=== PATIENT | female | born 1995 | race Caucasian/White ===

== ENCOUNTER 2016-11-29 21:42 | Emergency (ER) | payer OTHER ==
[~2016-11-29] VITALS: Ht 160 cm; Wt 58.1 kg
[2016-11-29 21:55] VITALS: Ht 160 cm; Wt 58.1 kg
[2016-11-29] MEDS ORDERED: SODIUM CHLORIDE 0.9% 1000ML 1,000 ML IV STA (22:04)
[2016-11-29] MEDS ORDERED: ONDANSETRON INJ 2 MG/ML 2 ML VIAL IV STA (22:04)
[2016-11-29] MEDS ORDERED: ACETAMINOPHEN 500 MG TAB PO STA (22:04)
[2016-11-29] MEDS ORDERED: KETOROLAC TROMETHAMINE 30 MG/ML VIAL IV STA (22:04)
[2016-11-29] MEDS ORDERED: NORE1CHW11 PO (22:05)
[2016-11-29] MEDS ORDERED: TOPI50TA16 PO (22:05)
--- NOTE | 2016-11-29 22:05 | EMERGENCY ROOM VISIT NOTE ---
History Report prepared by Jeffery: Jim Acosta Under the Supervision of: Dr. Salinas Case M.D. First contact with patient: 22:00 Chief Complaint: FLANK PAIN Stated Complaint: LEFT SIDE PAIN TOWARDS BACK,NAUSEA History of Present Illness The patient is a 21 year old female who presents to the Emergency Room with complaints of persistent left-sided flank pain beginning 16 days ago. She rates her pain currently at a 4/10 in severity and notes it radiates into her back. She reports urinating more frequently than baseline, and notes a cloudy color in her urine. The patient notes having chills and nausea. She admits to having a kidney infection in the past. Source of History: patient Onset: 16 days ago Position: other (left flank) Symptom Intensity: 4/10 in severity Quality: other (flank pain) Timing: other (persistent) Associated Symptoms: + chills, + nausea Review of Systems See HPI for pertinent positives & negatives. A total of 10 systems reviewed and were otherwise negative. Past Medical & Surgical Medical Problems: (1) History of kidney infection Family History No pertinent family history stated. Social History Smoking Status: Never Smoker Marital Status: in relationship Current/Historical Medications Scheduled Cephalexin Monohydrate (Keflex), 500 MG PO QID Norethin Acet & Estrad-Fe (Minastrin 24 Fe), 1 TAB PO DAILY Topiramate (Topamax), 50 MG PO HS Scheduled PRN Phenazopyridine Hcl (Pyridium), 1 TAB PO TID PRN for painful urination Allergies Coded Allergies: No Known Allergies (Unverified , 11/29/16) Physical Exam Vital Signs Date Time Temp Pulse Resp B/P Pulse Ox O2 Delivery O2 Flow Rate FiO2 11/29/16 23:16 94 18 108/61 98 Room Air 11/29/16 21:55 36.9 94 18 129/91 100 Room Air Physical Exam CONSTITUTIONAL: Mild painful distress. HEENT: No icterus, moist mucous membranes NECK: No meningismus, trachea is midline. CARDIOVASCULAR: Regular rate, normal perfusion RESPIRATORY: Unlabored breathing. Clear to auscultation. GASTROINTESTINAL: Mild to moderate left-sided flank tenderness. GENITOURINARY: No flank tenderness MUSCULOSKELETAL: Full range of motion NEUROLOGIC: No acute gross focal deficits. PSYCHIATRIC: Normal affect SKIN: Normal for ethnicity. Medical Decision & Procedures ER Provider Diagnostic Interpretation: CT results as stated below per my review and radiologist interpretation. ABDOMEN AND PELVIS CT WITHOUT CONTRAST FINDINGS: The lung bases are clear. The unenhanced liver, gallbladder, spleen, pancreas, and adrenal glands are unremarkable. No bowel wall thickening or obstruction. The pelvic organs are unremarkable. No suspicious lytic or blastic osseous lesions. Suboptimal evaluation for bowel pathology due to the lack of intravenous and oral contrast. The appendix is not identified with certainty. However, there are no inflammatory changes seen within the right lower quadrant. There is a punctate stone within the left kidney. No left-sided hydronephrosis. Calcifications within the left deep pelvis likely represent phleboliths given the lack of left-sided hydronephrosis. No right renal calculi. The bladder is unremarkable. Trace pelvic free fluid which is likely physiologic. IMPRESSION: 1. Left-sided nephrolithiasis. No hydronephrosis. 2. Suboptimal evaluation for bowel pathology due to the lack of intravenous and oral contrast. However, there is no definite bowel wall thickening or obstruction. 3. The appendix was not clearly identified. Electronically signed by: Ender Lopez M.D. 11/29/2016 10:59 PM Dictated Date/Time: 11/29/2016 10:52 PM Laboratory Results 11/29/16 22:15 Red Blood Count 4.33, Mean Corpuscular Volume 78.5, Mean Corpuscular Hemoglobin 25.9, Mean Corpuscular Hemoglobin Concent 32.9, Mean Platelet Volume 10.1, Neutrophils (%) (Auto) 49.8, Lymphocytes (%) (Auto) 39.1, Monocytes (%) (Auto) 8.7, Eosinophils (%) (Auto) 1.4, Basophils (%) (Auto) 0.8, Neutrophils # (Auto) 5.23, Lymphocytes # (Auto) 4.10, Monocytes # (Auto) 0.91, Eosinophils # (Auto) 0.15, Basophils # (Auto) 0.08 11/29/16 22:15 Test 11/29/16 22:04 11/29/16 22:10 11/29/16 22:15 Urine Color YELLOW Urine Appearance TURBID (CLEAR) Urine pH 7.5 (4.5-7.5) Urine Specific [place] 1.010 (1.000-1.030) Urine Protein NEG (NEG) Urine Glucose (UA) NEG (NEG) Urine Ketones NEG (NEG) Urine Occult Blood NEG (NEG) Urine Nitrite NEG (NEG) Urine Bilirubin NEG (NEG) Urine Urobilinogen NEG (NEG) Urine Leukocyte Esterase LARGE (NEG) Urine WBC (Auto) 10-30 /hpf (0-5) Urine RBC (Auto) 0-4 /hpf (0-4) Urine Hyaline Casts (Auto) 1-5 /lpf (0-5) Urine Epithelial Cells (Auto) >30 /lpf (0-5) Urine Bacteria (Auto) 2+ (NEG) White Blood Count 10.49 K/uL (4.8-10.8) Red Blood Count 4.33 M/uL (4.2-5.4) Hemoglobin 11.2 g/dL (12.0-16.0) Hematocrit 34.0 % (37-47) Mean Corpuscular Volume 78.5 fL (80-100) Mean Corpuscular Hemoglobin 25.9 pg (25-34) Mean Corpuscular Hemoglobin Concent 32.9 g/dl (32-36) Platelet Count 300 K/uL (130-400) Mean Platelet Volume 10.1 fL (7.4-10.4) Neutrophils (%) (Auto) 49.8 % Lymphocytes (%) (Auto) 39.1 % Monocytes (%) (Auto) 8.7 % Eosinophils (%) (Auto) 1.4 % Basophils (%) (Auto) 0.8 % Neutrophils # (Auto) 5.23 K/uL (1.4-6.5) Lymphocytes # (Auto) 4.10 K/uL (1.2-3.4) Monocytes # (Auto) 0.91 K/uL (0.11-0.59) Eosinophils # (Auto) 0.15 K/uL (0-0.5) Basophils # (Auto) 0.08 K/uL (0-0.2) RDW Standard Deviation 46.1 fL (36.4-46.3) RDW Coefficient of Variation 15.9 % (11.5-14.5) Immature Granulocyte % (Auto) 0.2 % Immature Granulocyte # (Auto) 0.02 K/uL (0.00-0.02) Anion Gap 13.0 mmol/L (3-11) Est Creatinine Clear Calc Drug Dose 86.6 ml/min Estimated GFR () 113.5 Estimated GFR (Non- 97.9 BUN/Creatinine Ratio 10.9 (10-20) Calcium Level 8.9 mg/dl (8.5-10.1) Labs reviewed by ED physician. Medications Administered Medications (Trade) Dose Ordered Sig/Thomas Route Start Time Stop Time Status Last Admin Dose Admin Acetaminophen 1000 mg 1,000 mg NOW STAT PO 11/29/16 22:04 11/29/16 22:06 DC 11/29/16 22:38 1,000 MG Sodium Chloride (Nss 1000ml) 1,000 ml @ 0 mls/hr Q0M STAT IV 11/29/16 22:04 11/29/16 22:06 DC 11/29/16 22:32 1,000 MLS/HR Ondansetron HCl (Zofran Inj) 4 mg NOW STAT IV 11/29/16 22:04 11/29/16 22:06 DC 11/29/16 22:38 4 MG Ketorolac Tromethamine (Toradol Inj) 30 mg NOW STAT IV 11/29/16 22:04 11/29/16 22:06 DC 11/29/16 22:38 30 MG ED Course 2200: Past medical records reviewed. The patient was evaluated in room B2. A complete history and physical examination was performed. 2203: Ordered Toradol Inj 30 mg IV, Zofran Inj 4 mg IV, NSS 1,000 ml @ 0 mls/hr Wide Open IV, and Acetaminophen 1,000 mg PO. 2330: Ordered Cephalexin Monohydrate 1 homepack PO. 2335: Upon reexamination the patient is hemodynamically stable. I discussed results and treatment plan with the patient. She verbalizes agreement and understanding. The patient is ready for discharge. Medical Decision Differentials include kidney stones, pyelonephritis, and musculoskeletal pain. 21-year-old presented to the emergency room for evaluation of mild to moderate waxing and waning left-sided flank tenderness associated with increased urinary frequency but without dysuria nor fever nor any other systemic complaints. She had moderate flank tenderness on exam without suprapubic tenderness. She has a history of pyelonephritis concerned she may be having a recurrence. CT examination revealed punctate stones on the left side and is presumed that her pain today likely due to a passing of the stones or gravel. Her lab work including urine sample or sensory unremarkable for infectious disease processes. She was advised to take Advil and Tylenol every 6 hours as needed for pain and given prescription for Keflex and Pyridium as needed should she develop fevers or other signs of a urinary tract infection. She was comfortable prior to discharge at 11:30 PM Impression Primary Impression: Flank pain Scribe Attestation The scribe's documentation has been prepared under my direction and personally reviewed by me in its entirety. I confirm that the note above accurately reflects all work, treatment, procedures, and medical decision making performed by me. Departure Information Dispostion Home / Self-Care Prescriptions Phenazopyridine Hcl (PYRIDIUM) 100 Mg Tab 1 TAB PO TID Y for painful urination for 3 Days, #9 TAB Prov: Salinas Case MD 11/29/16 Cephalexin Monohydrate (Keflex) 500 Mg Cap 500 MG PO QID, #20 CAP Prov: Salinas Case MD 11/29/16 Patient Instructions ED Flank Pain Uncertain Cause, My [facility]
[2016-11-29 22:37] LABS: BASO % 0.8 %; BASO ABS # 0.08 K/uL (0-0.2); COMPLETE YES; EOS % 1.4 %; IG% 0.2 %; LYMPH % 39.1 %; MEAN CELL VOLUME 78.5 fL (80-100); MEAN CORPUSCULAR HEMOGLOBIN 25.9 pg (25-34); MEAN CORPUSCULAR HGB CONC 32.9 g/dl (32-36); MEAN PLATELET VOLUME 10.1 fL (7.4-10.4); MONO % 8.7 %; NEUT % 49.8 %; PLATELET COUNT 300 K/uL (130-400); RED BLOOD COUNT 4.33 M/uL (4.2-5.4); WHITE BLOOD COUNT 10.49 K/uL (4.8-10.8)
[2016-11-29 22:49] LABS: URINE APPEARANCE TURBID (CLEAR); URINE BILIRUBIN NEG (NEG); URINE COLOR YELLOW; URINE EPITHELIAL CELL AUTO >30 /lpf (0-5); URINE NITRITE NEG (NEG); URINE PH 7.5 (4.5-7.5); UROBILINOGEN NEG (NEG); ZZUR CULT IF INDIC CLEAN CATCH YES
[2016-11-29 22:54] LABS: BUN/CREATININE RATIO 10.9 (10-20); CALCIUM 8.9 mg/dl (8.5-10.1); CREATININE 0.85 mg/dl (0.60-1.20); POTASSIUM 3.7 mmol/L (3.5-5.1)
[2016-11-29 22:59] LABS: MANUAL MICROSCOPIC REQUIRED? NO; REVIEW REQ? NO
--- NOTE | 2016-11-29 23:00 | DIAGNOSTIC IMAGING REPORT ---
ABDOMEN AND PELVIS CT WITHOUT CONTRAST CT DOSE: 327.16 mGy.cm HISTORY: Left-sided flank pain. TECHNIQUE: Multiaxial CT images of the abdomen and pelvis were performed without the use of intravenous and oral contrast according to the standard department stone protocol. COMPARISON STUDY: None. FINDINGS: The lung bases are clear. The unenhanced liver, gallbladder, spleen, pancreas, and adrenal glands are unremarkable. No bowel wall thickening or obstruction. The pelvic organs are unremarkable. No suspicious lytic or blastic osseous lesions. Suboptimal evaluation for bowel pathology due to the lack of intravenous and oral contrast. The appendix is not identified with certainty. However, there are no inflammatory changes seen within the right lower quadrant. There is a punctate stone within the left kidney. No left-sided hydronephrosis. Calcifications within the left deep pelvis likely represent phleboliths given the lack of left-sided hydronephrosis. No right renal calculi. The bladder is unremarkable. Trace pelvic free fluid which is likely physiologic. IMPRESSION: 1. Left-sided nephrolithiasis. No hydronephrosis. 2. Suboptimal evaluation for bowel pathology due to the lack of intravenous and oral contrast. However, there is no definite bowel wall thickening or obstruction. 3. The appendix was not clearly identified. Electronically signed by: Ender Lopez M.D. 11/29/2016 10:59 PM Dictated Date/Time: 11/29/2016 10:52 PM
[2016-11-29] MEDS ORDERED: CEPH500C PO (23:23)
[2016-11-29] MEDS ORDERED: PHEN-939 PO (23:24)
[2016-11-29] MEDS ORDERED: CEPHALEXIN 500MG HOME PACK 1 EA BTL PO ONE (23:30)
[2016-11-29 23:33] VITALS: BP 108/61; PULSE 94; TEMP 36.9; O2SAT 98
== END 2016-11-29 23:34 | disposition home or self-care (01) ==
LOC: C.EDB 21:45
DX: R10.9 Unspecified abdominal pain (principal); R35.0 Frequency of micturition; Z86.19 Personal history of other infectious and parasitic diseases

== ENCOUNTER 2018-02-17 22:31 | Emergency (ER) | payer OTHER ==
[~2018-02-17] VITALS: Ht 160 cm; Wt 64.6 kg
[~2018-02-17 22:31] MED LIST: NORE1CHW11 PO; TOPI50TA16 PO
[2018-02-17 22:35] VITALS: BP 131/82; PULSE 88; TEMP 36.5; O2SAT 98; Ht 160 cm; Wt 64.6 kg
--- NOTE | 2018-02-17 22:56 | EMERGENCY ROOM VISIT NOTE ---
History First contact with patient: 22:38 Chief Complaint: LACERATION/CUT (SUT/DERMABOND) Stated Complaint: LACERATION TO LEFT HAND, 5TH DIGIT Nursing Triage Summary: Patient reports that she was cutting bagels and cut her left pinky finger around 1700. History of Present Illness The patient is a 23 year old female who presents to the Emergency Room with complaints of a laceration to her left fifth digit. The patient states that approximately 4 hours ago, she was cutting bagels and slipped, accidentally cutting her finger with a knife. She states that the laceration was bleeding off and on until her arrival here. She rates her discomfort a 2/10. The patient does admit to feeling slightly lightheaded when the laceration was bleeding, but feels better now. She states her tetanus is up-to-date. She states that the area of the laceration is beginning to feel slightly numb. Review of Systems A complete 6 point review of systems was reviewed with the patient with pertinent positives and negatives as per history of present illness. All else were negative. Past Medical/Surgical History Medical Problems: (1) History of kidney infection Social History Smoking Status: Never Smoker Marital Status: in relationship Current/Historical Medications Scheduled Norethin Acet & Estrad-Fe (Minastrin 24 Fe), 1 TAB PO DAILY Topiramate (Topamax), 50 MG PO HS Physical Exam Vital Signs Date Time Temp Pulse Resp B/P (MAP) Pulse Ox O2 Delivery O2 Flow Rate FiO2 02/17/18 22:35 36.5 88 18 131/82 98 Room Air Physical Exam VITALS: Vitals are noted on the nurse's note and reviewed by myself. Vital signs stable. GENERAL: This is a 23-year-old female, in no acute distress, nondiaphoretic, well-developed well-nourished. SKIN: There is a 1 cm non-gaping, nonbleeding laceration to the distal aspect of the left fifth digit. Laceration is superficial and lies well without traction. MUSCULOSKELETAL: Full range of motion of all fingers. NEURO: Patient was alert and oriented to person place and time. Normal sensation. Medical Decision & Procedures Procedure Verbal consent was obtained to perform the procedure. The wound was cleaned with betadine and sterile saline and there was no bleeding. The edges of the laceration were approximated and secured with 3 layers of Dermabond glue with good wound approximation. The patient tolerated the procedure well. Medical Decision The patient was evaluated as above. She sustained a superficial laceration to the finger. Dermabond was applied as noted procedure section. Instructions were discussed with the patient. She verbalized understanding of my assessment and treatment plan and was discharged home in good condition. Medication Reconcilliation Current Medication List: was personally reviewed by me Blood Pressure Screening Patient's blood pressure: Normal blood pressure Impression Primary Impression: Laceration of finger Departure Information Dispostion Home / Self-Care Condition GOOD Referrals No Doctor, Assigned (PCP) Patient Instructions My [facility] Additional Instructions Allow the skin glue to fall off on its own in the next 2-3 days. Do not apply any ointments or lotions to the glue. For pain control, you can use the following [id number] medicines (if >12 yo): - Regular strength (325mg/tab) Tylenol (acetaminophen) 2 tabs every 4-6 hours as needed. Do not exceed 12 tablets in a 24 hour period. Avoid taking more than 4 grams (4000 mg) of Tylenol per day. This includes any other sources of acetaminophen you may take on a regular basis. - Regular strength (200 mg/tab) Advil (ibuprofen) 1-2 tabs every 4-6 hours as needed. Do not exceed a dose of 3200 mg per day. You may wash the hands and shower normally. Return for any signs of infection such as increasing redness, swelling, drainage or other new/concerning symptoms. Problem Qualifiers Primary Impression: Laceration of finger Encounter type: initial encounter Finger: little finger Damage to nail status: without damage Foreign body presence: without foreign body Laterality: left Qualified Codes: S61.217A - Laceration without foreign body of left little finger without damage to nail, initial encounter
== END 2018-02-17 23:01 | disposition home or self-care (01) ==
LOC: C.EDB 22:33
DX: S61.217A Laceration without foreign body of left little finger without damage to nail, initial encounter (principal); W26.0XXA Contact with knife, initial encounter; Y93.G1 Activity, food preparation and clean up; Y99.8 Other external cause status